=== PATIENT | male | born 1965 | race Two or more races ===

== ENCOUNTER 2020-01-19 09:14 | Outpatient (CLI) | payer MEDICAID ==
[~2020-01-19] VITALS: Ht 175.3 cm; Wt 99.3 kg
[2020-01-19 09:25] VITALS: BP 104/67
--- NOTE | 2020-01-19 10:30 | Consultation ---
DATE OF CONSULTATION: 01/19/2020 CONSULTING PHYSICIAN: Caleb Peters MD. CHIEF COMPLAINT: Referral for screening colonoscopy. PAST MEDICAL HISTORY: None. PAST SURGICAL HISTORY: Appendectomy. MEDICATIONS: None. FAMILY HISTORY: Noncontributory. SOCIAL HISTORY: The patient denies any tobacco, alcohol, or drug abuse. ALLERGIES: No known drug allergies. REVIEW OF SYSTEMS: Positive for bloating. PHYSICAL EXAMINATION: VITAL SIGNS: Temperature 96.8, blood pressure is 104/67, pulse 66, respirations 20. HEENT: Normocephalic, atraumatic. Sclerae anicteric. NECK: Supple. No evidence of obvious lymphadenopathy. CARDIOVASCULAR: Regular rate and rhythm. Plus S1 and S2. LUNGS: Clear to auscultation bilaterally. ABDOMEN: Positive bowel sounds. Soft and nontender. No rebound. No guarding. No peritoneal sign. EXTREMITIES: No cyanosis, no clubbing, no edema. ASSESSMENT AND PLAN: This is a 54-year-old male with need for screening colonoscopy. The patient was given instruction for colonoscopy. Risks and benefits of procedure were explained to him. We will go ahead and schedule him when authorization is obtained. Caleb Peters M.D. DR: WEST JOB#: [id number] CC:
== END 2020-01-19 11:14 | disposition home or self-care (01) ==
LOC: PAN 09:14
DX: R14.0 Abdominal distension (gaseous) (principal); Z90.89 Acquired absence of other organs
CPT/HCPCS: G0463